=== PATIENT | female | born 1935 | race Caucasian/White ===

== ENCOUNTER → 2016-07-17 | Outpatient (CLI) | payer MEDICARE, BC ==
[~2016-07-17] MED LIST: ASPIRIN PO; CALCIUM CARB PO; CELEXA PO; CENTRUM SILVER PO; CITRACAL200 MG PO; CLARITIN10 MG PO; GLUCOSAMINE/CHONDROI PO; LISINOPRIL PO; LORTAB 7.5-5001 TAB PO; PRAVACHOL PO; VIT D PO
--- NOTE | ~2016-07-17 | CR151 ---
[facility] A Service of [facility] & [facility] RADIOLOGY TEXT RESULTS PATIENT: ALEXA FREDERICK LOCATION: [facility] : 34 UNIT #: [id number] AGE: [address]: Pilar Steve SEX: F ORDER DR: [id number] [facility] [address] [place], [place] [address] [id number] O MR#: [id number] Acc #: [id number] NAME: ALEXA FREDERICK : 1935 SEX: F STUDY DATE/TIME: 07/17/2016 13:06 UNIT: [facility] ROOM: STUDY DESCRIPTION: CR Hip Min 2 Views Rt Attending Physician: Pilar Steve A.P.R.N. Referring Physician: Pilar Steve A.P.R.N. Ordering Physician: Pilar Steve A.P.R.N. Primary Care Physician: Keyla Ponce M.D. MEDICAL IMAGING REPORT This report is preliminary unless electronic signature is present EXAM Right hip, 07/17/2016. HISTORY Right hip pain after fall 3 days ago. FINDINGS PA and lateral views of the right hip were obtained. There are up to 20 small round radiodense objects in the soft tissues or on the skin that measure about 2-3 mm each. These are in the right groin region. There is no fracture or degenerative change. IMPRESSION No evidence of acute injury. Dictated by... Vinnie Cedillo M.D. THIS IS AN ELECTRONICALLY VERIFIED REPORT Vinnie Cedillo M.D. at 07/18/2016 6:04 AM Tiffanie TD: 07/17/2016 18:47 JOB #: [id number] MEDICAL IMAGING REPORT COPY
--- NOTE | ~2016-07-17 | CR213 ---
[facility] A Service of [facility] & [facility] RADIOLOGY TEXT RESULTS PATIENT: ALEXA FREDERICK LOCATION: [facility] : 34 UNIT #: [id number] AGE: [address]: Pilar Steve SEX: F ORDER DR: [id number] [facility] [address] [place], [place] [address] [id number] O MR#: [id number] Acc #: [id number] NAME: ALEXA FREDERICK : 1935 SEX: F STUDY DATE/TIME: 07/17/2016 13:02 UNIT: [facility] ROOM: STUDY DESCRIPTION: CR Ribs Unilateral 2 View Rt Attending Physician: Pilar Steve A.P.R.N. Referring Physician: Pilar Steve A.P.R.N. Ordering Physician: Pilar Steve A.P.R.N. Primary Care Physician: Keyla Ponce M.D. MEDICAL IMAGING REPORT This report is preliminary unless electronic signature is present EXAM Right rib series and PA chest. DATE OF EXAM 07/17/2016 INDICATION Pain in right ribs for 3 days after falling down at home. FINDINGS The PA view of the chest and oblique views of the right ribs were obtained. No fractures visible. The heart size and vascularity are normal and the lungs are clear. IMPRESSION Normal PA chest and right rib series. Dictated by... Vinnie Cedillo M.D. THIS IS AN ELECTRONICALLY VERIFIED REPORT Vinnie Cedillo M.D. at 07/18/2016 6:04 AM HANSEL/magdy TD: 07/17/2016 18:59 JOB #: [id number] MEDICAL IMAGING REPORT COPY
--- NOTE | ~2016-07-17 | CR181 ---
[facility] A Service of [facility] RADIOLOGY TEXT RESULTS PATIENT: ALEXA FREDERICK LOCATION: [facility] : 34 UNIT #: [id number] AGE: [address]: Pilar Steve SEX: F ORDER DR: [id number] [facility] [address] [place] [address] [place], [place] [address] [id number] O MR#: [id number] Acc #: [id number] NAME: ALEXA FREDERICK : 1935 SEX: F STUDY DATE/TIME: 07/17/2016 13:11 UNIT: [facility] ROOM: STUDY DESCRIPTION: CR Lumbar Spine 2 or 3 Views Attending Physician: Pilar Steve A.P.R.N. Referring Physician: Pilar Steve A.P.R.N. Ordering Physician: Pilar Steve A.P.R.N. Primary Care Physician: Keyla Ponce M.D. MEDICAL IMAGING REPORT This report is preliminary unless electronic signature is present EXAM 3 views lumbar spine. DATE 07/17/2016 HISTORY Fell 3 days ago. Low back pain. COMPARISON None. FINDINGS No acute lumbar spine fracture is seen. There is advanced diminished disc height at L4-5 and L5-S1 with endplate sclerosis and anterior and posterior osteophyte formation. Multilevel facet arthropathy is present, thought to be greatest on the right at L4-5. Dense calcific atherosclerosis is present within the abdominal aorta. IMPRESSION 1. No acute lumbar spine findings. 2. Advanced facet arthropathy on the right at L4-5. 3. Advanced diminished disc height at L4-5 and L5-S1. Dictated by... Simin Sánchez M.D. THIS IS AN ELECTRONICALLY VERIFIED REPORT Simin Sánchez M.D. at 07/18/2016 11:56 AM LUIZ/[facility] A Service [facility] RADIOLOGY TEXT RESULTS PATIENT: ALEXA FREDERICK LOCATION: [facility] : 34 UNIT #: [id number] AGE: [address]: Pilar Steve SEX: F ORDER DR: TD: 07/17/2016 21:45 JOB #: [id number] MEDICAL IMAGING REPORT COPY
--- NOTE | ~2016-07-17 | CR107 ---
[facility] A Service of [facility] & [facility] RADIOLOGY TEXT RESULTS PATIENT: ALEXA FREDERICK LOCATION: [facility] : 34 UNIT #: [id number] AGE: [address]: Pilar Steve SEX: F ORDER DR: [id number] [facility] [address] [place], [place] [address] [id number] O MR#: [id number] Acc #: [id number] NAME: ALEXA FREDERICK : 1935 SEX: F STUDY DATE/TIME: 07/17/2016 13:06 UNIT: [facility] ROOM: STUDY DESCRIPTION: CR Femur 2 Views Rt Attending Physician: Pilar Steve A.P.R.N. Referring Physician: Pilar Steve A.P.R.N. Ordering Physician: Pilar Steve A.P.R.N. Primary Care Physician: Keyla Ponce M.D. MEDICAL IMAGING REPORT This report is preliminary unless electronic signature is present EXAM Right femur, 07/17/2016. HISTORY Pain after fall 3 days ago. FINDINGS AP and lateral views of the right femur was obtained. No fractures are identified. There are several small round densities in the soft tissues in the front of the right hip of uncertain etiology, but I think they are clinical significant. There are about 20 of these. IMPRESSION No evidence of acute injury. Dictated by... Vinnie Cedillo M.D. THIS IS AN ELECTRONICALLY VERIFIED REPORT Vinnie Cedillo M.D. at 07/18/2016 6:04 AM Tiffanie TD: 07/17/2016 18:44 JOB #: [id number] MEDICAL IMAGING REPORT COPY
== END | disposition home or self-care (01) ==
LOC: CRAD 12:39
DX: M25.551 Pain in right hip (principal); R07.81 Pleurodynia; M54.5 Low back pain; M46.96 Unspecified inflammatory spondylopathy, lumbar region
CPT/HCPCS: 71100; 72100; 73502; 73552